=== PATIENT | male | born 1975 | race Caucasian/White ===

== ENCOUNTER 2025-09-05 17:31 | Emergency (ER) | payer OTHER, SELFPAY ==
[2025-09-05 17:35] VITALS: BP 117/83
[2025-09-05 17:57] LABS: Hematocrit 43.1 % (39.0-52.0); Hemoglobin 15.0 g/dL (13.0-18.0); Mean Corp Hgb Conc. 34.8 g/dL (33.0-37.0); Mean Corpuscular Volume 88.0 fL (80.0-94.0); Nucleated Red Blood Cells % 0 % (-); Platelet Count 228 10^3/uL (130-400); Red Cell Dist. Width 12.6 % (11.5-14.5)
[2025-09-05 18:11] LABS: ALT (SGPT) 38 U/L (0-50); AST (SGOT) 30 U/L (17-59); Albumin 4.6 g/dl (3.5-5.0); Alkaline Phosphatase 43 U/L (38-126); Blood Urea Nitrogen 23 mg/dl (9-20); Calcium 9.0 mg/dl (8.4-10.2); Carbon Dioxide 25 mmol/L (22-30); Chloride 103 mmol/L (98-107); Glucose 129 mg/dl (70-99); Potassium 4.2 mmol/L (3.5-5.1); Sodium 135 mmol/L (135-145); Total Protein 7.3 g/dl (6.3-8.2); eGFR > 60.00
[2025-09-05 18:23] LABS: Troponin I 0.027 ng/ml
[2025-09-05 20:12] VITALS: BP 113/80
--- NOTE | 2025-09-05 20:22 | ED.GENMED ---
History of Present Illness
<Nataliya Streeter MD, Resident - Last Filed: 09/05/25 23:45>
General
Chief Complaint: Heart Rate Problem
Source: patient
Time Seen by Provider: 09/05/25 20:04
History of Present Illness
History of Present Illness:
50-year-old male with history of atrial fibrillation status post ablation 2014, MR repair in 2006, hyperlipidemia presents to the ER for irregular heart rate. Last week, he noticed his heart rate to be in the 150s however after a few hours went
back into normal range. However on Friday, he noticed his heart rate jumping up and down in the low 100s range. He is going to have an echocardiogram for his diabetes clinical manager Codey Lehman at [facility] tomorrow and he was worried that if he had an
abnormal heart rate that it might affect the echo so he came in for an evaluation. He denies any dizziness, blurry vision, shortness of breath, chest pain. He does not have any history of TIA, CVA, peripheral vascular disease, diabetes, CHF, prior
MN. He is not on anticoagulation or rate controlling medications.
Past History
<Nataliya Streeter MD, Resident - Last Filed: 09/05/25 23:45>
Past History
ED Past Medical History: Arrthythmia (PAF), Valvular disease (mitral regurg-MV repair) and Other (Aflutter)
ED Past Surgical History: Cardiac (Mitral valve repair; afib ablation 05/2016)
Social History
Tobacco: Non-smoker
Alcohol: Occasional (rare)
Drug: None
Personal:
Living: with family
Employment: Employed
Family History
Family History: CAD
Review of Systems
<Nataliya Streeter MD, Resident - Last Filed: 09/05/25 23:45>
Review of Systems
Allergies reviewed?: Yes
All Other Systems: ROS reviewed and negative except as documented in HPI and ROS
Phy Exam
<Nataliya Streeter MD, Resident - Last Filed: 09/05/25 23:45>
Physical Exam
Physical Exam:
General: Well-appearing
Head: Atraumatic
Neck: Supple
Cardiac: Irregularly irregular rhythm
Respiratory: Clear breath sounds bilaterally
Abdomen: Soft, nontender, nondistended, normal bowel sounds in all 4 quadrants
Extremities: No peripheral edema
General Physical Exam
General Presentation: well appearing
General age: appears stated age
General Skin: warm and dry
General Habitus: normal
General Mental: alert
General Hydration: appears well hydrated
Course
<Nataliya Streeter MD, Resident - Last Filed: 09/05/25 23:45>
Orders/Labs/Results
Orders:
Orders
09/05/25 17:34
EKG [Electrocardiogram (*1)] Urgent
Reason for Study: Atrial Fibrillation
EKG- Treatment ONCE
09/05/25 17:47
Complete Blood Count/With Diff Urgent
Comprehensive Metabolic Panel Urgent
Troponin I Urgent
Abnormal Lab Results
09/05/25
17:47
MPV 10.5 H fL
(7.4-10.4)
BUN 23 H mg/dl
(9-20)
Glucose 129 H mg/dl
(70-99)
09/05/25 17:47
09/05/25 17:47
Vital Signs
Initial and Last Documented VS:
Initial Vital Signs
Temp Pulse Resp Pulse Ox
97.6 F 67 18 98
09/05/25 17:34 09/05/25 17:34 09/05/25 17:34 09/05/25 17:34
Last Documented Vital Signs
Temp Pulse Resp BP Pulse Ox
97.6 F 86 17 113/80 100
09/05/25 17:34 09/05/25 20:30 09/05/25 20:30 09/05/25 20:12 09/05/25 20:30
<George Canada DO - Last Filed: 09/05/25 22:54>
Orders/Labs/Results
Orders:
Orders
09/05/25 17:34
EKG [Electrocardiogram (*1)] Urgent
Reason for Study: Atrial Fibrillation
EKG- Treatment ONCE
09/05/25 17:47
Complete Blood Count/With Diff Urgent
Comprehensive Metabolic Panel Urgent
Troponin I Urgent
Abnormal Lab Results
09/05/25
17:47
MPV 10.5 H fL
(7.4-10.4)
BUN 23 H mg/dl
(9-20)
Glucose 129 H mg/dl
(70-99)
09/05/25 17:47
09/05/25 17:47
Vital Signs
Initial and Last Documented VS:
Initial Vital Signs
Temp Pulse Resp Pulse Ox
97.6 F 67 18 98
09/05/25 17:34 09/05/25 17:34 09/05/25 17:34 09/05/25 17:34
Last Documented Vital Signs
Temp Pulse Resp BP Pulse Ox
97.6 F 86 17 113/80 100
09/05/25 17:34 09/05/25 20:30 09/05/25 20:30 09/05/25 20:12 09/05/25 20:30
<Nataliya Streeter MD, Resident - Last Filed: 09/05/25 23:45>
MDM/Problems Addressed
MDM/Problems Addressed:
50-year-old male presents to the ER for atrial fibrillation. [id number] score of 0. Symptoms started midday on Friday, he is outside the 48-hour admitted for cardioversion. Discussed risk of possible clot with patient and recommended
follow-up with diabetes clinical manager for further evaluation and echo in morning. Will discharge with instructions to follow-up with cardiology as heart rate has been stable in the 80s, blood pressure stable. The only medications he is on is atorvastatin,
Zetia, melatonin and as needed amoxicillin for dental procedures.
<Nataliya Streeter MD, Resident - Last Filed: 09/05/25 23:45>
*Pulse Oximetry
SaO2: 98
Oxygen Mode of Delivery: Room air
Patient hypoxic: no
*Glassware Engraver Interpretation
Rate: normal
Interpretation: abnormal
Rhythm: a-fib
*Critical Care Note
Total Time (30-74mins, 75-104mins- exclusive of procedures): Not Applicable
Data Reviewed
Review of Other/Old Records Reveals: Labs (Prior hg 12/18/16 16.1) and Radiology Studies (Prior elbow x-ray radial head fracture 07/15/17)
Source: patient
ED Attending Note
<Nataliya Streeter MD, Resident - Last Filed: 09/05/25 23:45>
-
Portions of this chart may have been created with voice recognition software.� Occasional wrong word or��sound alike� substitutions may have occurred due to the inherent limitations of voice recognition software.
<George Canada DO - Last Filed: 09/05/25 22:54>
ED Attending Note
Patient seen and examined by attending physician: Yes
I performed a history and physical exam of patient and discussed management with resident, I reviewed resident's note and agree with documented findings and plan of care.: Yes
ED Attending Note:
I evaluated the patient bedside. Heart rate in the 70s to 80s range. History of mitral valve repair in around 2006 and then ablation for A-fib in around 2016. He had a tachycardic episode about a week ago and then over 48 hours ago, he felt he
went back into A-fib/flutter. He is not anticoagulated but also has a [id number] score of 0. We discussed cardioversion however symptoms were likely ongoing for more than 48 hours. He states he can get into see his diabetes clinical manager soon and has an
echo tomorrow.
Discharge Plan
Departure
Patient Disposition: Home (Routine Discharge)
Date of Disposition: 09/05/25
Time of Disposition: 20:31
Patient with high blood pressure during this ER visit?: No
Discharge Problem:
Atrial fibrillation
Instructions: Atrial Fibrillation (DC)
Prescriptions:
No Action
inulin-chromium picolinate [Fiber Gummies (with chromium)] 1 EACH tablet,chewable
1 ea PO . 4-5 TIMES PER WEEK
Activity Restrictions/Additional Instructions:
Please follow up with diabetes clinical manager for further evaluation.
Interventions
Interventions:
*Risk Screen - Suicide Last Done: 09/05/25 17:38
*General Assessment Last Done: 09/05/25 17:37
*Neglect/Abuse Screening Last Done: 09/05/25 17:37
*ED- Fall Risk Assessment Last Done: 09/05/25 20:48
*ED COVID-19 Vaccine History Last Done: 09/05/25 20:48
*ED Influenza Vaccine History Last Done: 09/05/25 20:48
*Nursing Disposition Last Done: 09/05/25 21:06
ED- Cardiac Assessment Last Done: 09/05/25 20:48
ED- Pulmonary Assessment Last Done: 09/05/25 20:48
Discharge Date and Time
Discharge Date/Time: 09/05/25 21:07
Print Language: CONGOLESE
== END 2025-09-05 21:07 | disposition home or self-care (01) ==
LOC: EMR 17:31
PROVIDERS: Emergency Medicine; EMERGENCY PHYSICIAN Emergency Medicine
DX: I48.91 Unspecified atrial fibrillation (principal); E78.00 Pure hypercholesterolemia, unspecified; I34.0 Nonrheumatic mitral (valve) insufficiency; I48.0 Paroxysmal atrial fibrillation; Z82.49 Family history of ischemic heart disease and other diseases of the circulatory system
CPT/HCPCS: 99283; 80053; 84484; 85025; 93005